=== PATIENT | female | born 1980 | race Two or more races ===

== ENCOUNTER 2017-06-06 11:46 | Emergency (ER) | payer MEDICAID ==
[~2017-06-06] VITALS: Ht 165.1 cm; Wt 58.0 kg
[~2017-06-06 11:46] MED LIST: HYDR118S10 PO; NITR100C6 PO; NO HOME MEDS
[2017-06-06 12:01] VITALS: BP 113/85
[2017-06-06] MEDS ORDERED: TOBR5DRO2 LEFTEYE (13:48)
== END 2017-06-06 13:59 | disposition home or self-care (01) ==
LOC: ER 11:47
DX: H01.006 Unspecified blepharitis left eye, unspecified eyelid (principal); Z79.899 Other long term (current) drug therapy
CPT/HCPCS: 99283

== ENCOUNTER 2021-12-10 20:49 | Emergency (ER) | payer MEDICAID ==
[~2021-12-10] VITALS: Ht 167.6 cm; Wt 55.7 kg
[~2021-12-10 20:49] MED LIST changes: +TOBR5DRO2 LEFTEYE
[2021-12-10 21:02] VITALS: BP 108/70
[2021-12-10] MEDS ORDERED: clindamycin 150mg capsule PO ONE ×2 (22:05)
[2021-12-10] MEDS ORDERED: ondansetron 4mg rapidly disintigrating tab PO ONE (22:05)
[2021-12-10] MEDS ORDERED: HYDROcodone/acetaminophen 5mg/325mg tablet PO ONE (22:05)
[2021-12-10] MEDS ORDERED: IBUP-1984 PO (22:07)
[2021-12-10] MEDS ORDERED: CLIN300C70 PO (22:07)
--- NOTE | 2021-12-10 22:41 | NUR ---
PO MEDS X3 GIVEN
== END 2021-12-10 22:47 | disposition home or self-care (01) ==
LOC: ER 20:49
DX: K04.7 Periapical abscess without sinus (principal); D64.9 Anemia, unspecified; Z59.00 Homelessness unspecified; Z79.899 Other long term (current) drug therapy; Z79.2 Long term (current) use of antibiotics; Z79.1 Long term (current) use of non-steroidal anti-inflammatories (NSAID)
CPT/HCPCS: 99284

== ENCOUNTER 2022-07-05 20:57 | Emergency (ER) | payer BC, MEDICAID ==
[~2022-07-05] VITALS: Ht 167.6 cm; Wt 56.4 kg
[2022-07-05 21:07] VITALS: BP 125/68
[2022-07-05 21:44] LABS: BASOPHILS # (AUTO) 0.1 X10'3 (0-0.2); BASOPHILS % (AUTO) 1.7 % (0-1); EOSINOPHILS # (AUTO) 0.2 X10'3 (0-0.9); EOSINOPHILS % (AUTO) 3.6 % (0-6); HEMATOCRIT 24.9 % (35.0-45.0); HEMOGLOBIN 7.4 g/dl (12.0-16.0); LYMPHOCYTES # (AUTO) 1.4 X10'3 (1.1-4.8); LYMPHOCYTES % (AUTO) 30.7 % (21-51); MEAN CORPUSCULAR HEMOGLOBIN 19.5 PG (27.0-31.0); MEAN CORPUSCULAR HGB CONC 29.9 g/dL (33.0-36.5); MEAN CORPUSCULAR VOLUME 65.3 FL (78-98); MEAN PLATELET VOLUME 7.5 FL (7.4-10.4); MONOCYTES # (AUTO) 0.4 X10'3 (0-0.9); MONOCYTES % (AUTO) 9.2 % (2-12); NEUTROPHILS # (AUTO) 2.6 X10'3 (1.8-7.7); NEUTROPHILS % (AUTO) 54.8 % (42-75); PLATELET COUNT 289 X10'3 (140-440); RED BLOOD COUNT 3.81 X10'6 (4.20-5.60); RED CELL DISTRIBUTION WIDTH 19.6 % (11.5-14.5); WHITE BLOOD COUNT 4.6 X10'3 (4.5-11.0)
[2022-07-05 21:54] LABS: ALANINE AMINOTRANSFERASE 13 U/L (12-78); ALBUMIN 3.8 G/DL (3.4-5.0); ALBUMIN/GLOBULIN RATIO 0.8 (1.1-1.5); ALKALINE PHOSPHATASE 60 IU/L (46-116); ANION GAP 7 (8-16); ASPARTATE AMINO TRANSFERASE 14 U/L (10-37); BILIRUBIN,TOTAL 0.3 MG/DL (0.1-1.0); BLOOD UREA NITROGEN 8 MG/DL (7-18); BUN/CREATININE RATIO 11.8 (6.6-38.0); CALCIUM 8.3 MG/DL (8.5-10.1); CHLORIDE 103 MMOL/L (99-107); CREATININE 0.68 MG/DL (0.40-0.90); POTASSIUM 3.8 MMOL/L (3.5-5.1); SODIUM 136 MMOL/L (135-145); TOTAL CARBON DIOXIDE 25.7 MMOL/L (24-32); TOTAL PROTEIN 8.3 G/DL (6.4-8.2); eGFR > 90 ML/MIN
[2022-07-05 21:56] LABS: GLUCOSE 103 MG/DL (70-104)
[2022-07-05 22:02] LABS: PLATELET ESTIMATE NORMAL
[2022-07-05 22:03] LABS: ANISOCYTOSIS 2+
[2022-07-05 22:04] LABS: ELLIPTOCYTES 1+; HYPOCHROMASIA 1+; MICROCYTOSIS 2+; POIKILOCYTOSIS 1+
[2022-07-05 22:06] LABS: SCHISTOCYTES FEW
== END 2022-07-06 01:11 | disposition left against medical advice (07) ==
LOC: ER 20:59
DX: R94.8 Abnormal results of function studies of other organs and systems (principal); Z53.21 Procedure and treatment not carried out due to patient leaving prior to being seen by health care provider
CPT/HCPCS: 36415; 80053; 85008; 85025; 86870; 86885; 86900; 86901; 86902; 86905

== ENCOUNTER 2022-10-27 20:30 | Emergency (ER) | payer MEDICAID ==
[~2022-10-27] VITALS: Ht 167.6 cm; Wt 55.4 kg
[2022-10-27 21:12] LABS: HEMATOCRIT 24.3 % (35.0-45.0); HEMOGLOBIN 7.1 g/dl (12.0-16.0); MEAN CORPUSCULAR HEMOGLOBIN 18.5 PG (27.0-31.0); MEAN CORPUSCULAR HGB CONC 29.4 g/dL (33.0-36.5); MEAN PLATELET VOLUME 8.6 FL (7.4-10.4); PLATELET COUNT 252 X10'3 (140-440); RED BLOOD COUNT 3.86 X10'6 (4.20-5.60); WHITE BLOOD COUNT 4.4 X10'3 (4.5-11.0)
[2022-10-27 23:06] VITALS: BP 112/80
== END 2022-10-27 23:15 | disposition home or self-care (01) ==
LOC: ER 20:30
DX: R53.83 Other fatigue (principal); D53.9 Nutritional anemia, unspecified; Z88.2 Allergy status to sulfonamides; Z56.0 Unemployment, unspecified; Z98.890 Other specified postprocedural states
CPT/HCPCS: 36415; 85027; 99283

== ENCOUNTER 2022-10-28 05:13 | Emergency (ER) | payer MEDICAID ==
[~2022-10-28] VITALS: Ht 167.6 cm; Wt 56.2 kg
[2022-10-28 05:21] VITALS: BP 107/72
--- NOTE | 2022-10-28 07:30 | NUR ---
PT LEFT ED WITHOUT BEING SEEN BY DR WILKERSON. PT DID NOT NOTIFY RN OR MD THAT SHE WAS LEAVING. PT DID NOT HAVE AN IV IN PLACE. NO AMA FORM WAS SIGNED.
== END 2022-10-28 07:34 | disposition home or self-care (01) ==
LOC: ER 05:14
DX: Z00.00 Encounter for general adult medical examination without abnormal findings (principal); Z53.21 Procedure and treatment not carried out due to patient leaving prior to being seen by health care provider
CPT/HCPCS: 99281

== ENCOUNTER 2023-07-08 23:59 | Inpatient (IN) | payer MEDICAID ==
[~2023-07-08] VITALS: Ht 167.6 cm; Wt 53.0 kg
[2023-07-09] VITALS (7 sets, daily range): BP systolic 91–103; BP diastolic 58–70; PULSE 69–123; RESP 12–25; TEMP 98.1–98.7; O2SAT 95–100
[2023-07-09] MEDS: normal saline 1000ML IV soln IVB ONE (01:10)
[2023-07-09] MEDS: methylPREDNISolone sod succ 125mg/2ml vial IV ONE (01:46)
[2023-07-09] MEDS: ondansetron/PF 4mg/2ml inj IV ONE (02:03)
[2023-07-09] MEDS: morphine 4 MG/ML inj SYRINge IV ONE (02:03)
[2023-07-09 02:22] LABS: EOSINOPHILS # (AUTO) 0.1 X10'3 (0-0.9); EOSINOPHILS % (AUTO) 1.8 % (0-6); MEAN CORPUSCULAR HGB CONC 33.3 g/dL (33.0-36.5); MONOCYTES # (AUTO) 0.3 X10'3 (0-0.9); MONOCYTES % (AUTO) 7.5 % (2-12)
[2023-07-09 02:24] LABS: HEMATOCRIT 32.3 % (35.0-45.0); HEMOGLOBIN 10.8 g/dl (12.0-16.0); LYMPHOCYTES # (AUTO) 0.6 X10'3 (1.1-4.8); LYMPHOCYTES % (AUTO) 14.3 % (21-51); MEAN CORPUSCULAR HEMOGLOBIN 30.9 PG (27.0-31.0); MEAN CORPUSCULAR VOLUME 92.7 FL (78-98); MEAN PLATELET VOLUME 9.3 FL (7.4-10.4); NEUTROPHILS # (AUTO) 3.2 X10'3 (1.8-7.7); NEUTROPHILS % (AUTO) 75.4 % (42-75); PLATELET COUNT 204 X10'3 (140-440); RED BLOOD COUNT 3.49 X10'6 (4.20-5.60); RED CELL DISTRIBUTION WIDTH 15.3 % (11.5-14.5); WHITE BLOOD COUNT 4.2 X10'3 (4.5-11.0)
[2023-07-09 02:26] LABS: ALBUMIN 3.7 G/DL (3.4-5.0); ANION GAP 9 (8-16); BLOOD UREA NITROGEN 12 MG/DL (7-18); BUN/CREATININE RATIO 18.2 (10.0-20.0); CALCIUM 7.8 MG/DL (8.5-10.1); CHLORIDE 107 MMOL/L (99-107); CREATININE 0.66 MG/DL (0.40-0.90); POTASSIUM 3.6 MMOL/L (3.5-5.1); PRO BRAIN NATRIURETIC PEPTIDE 33 PG/ML (0-125); SODIUM 143 MMOL/L (135-145); TOTAL CARBON DIOXIDE 27.4 MMOL/L (24-32); eCRCL 93 ML/MIN; eGFR > 90 ML/MIN
[2023-07-09 02:41] LABS: GLUCOSE 80 MG/DL (70-104)
[2023-07-09] MEDS: albuterol 2.5 MG/3 ML nebule CONTNEB PRN (03:10)
[2023-07-09] MEDS: ipratropium 0.5 MG/2.5ML nebule IH ONE (03:11)
[2023-07-09 05:03] LABS: GLUCOSE,CSF 60 MG/DL (40-75); TOTAL PROTEIN,CSF 23 MG/DL (15-45)
[2023-07-09 05:32] LABS: APPEARANCE,CSF CLEAR; CSF SUPERNATANT COLOR COLORLESS; CSF VOLUME 4 ML
[2023-07-09 05:33] LABS: CSF RBC 40 /CU MM (0); TUBE# COUNTED 1
[2023-07-09 05:41] LABS: CSF WBC CT 8 /CU MM (0-5)
[2023-07-09 05:42] LABS: APPEARANCE,CSF CLEAR; CSF SUPERNATANT COLOR COLORLESS
[2023-07-09 05:43] LABS: CSF RBC 150 /CU MM (0); CSF VOLUME 4 ML; TUBE# COUNTED 4
[2023-07-09 05:45] LABS: CSF WBC CT 8 /CU MM (0-5)
[2023-07-09] MEDS ORDERED: vancomycin/NS 1 GM ADD-VANTAGE 250 ML IV ONE (05:55)
[2023-07-09] MEDS ORDERED: CefTRIAXone 2gm/D5W 50ml BAG 50 ML IV ONE (05:55)
[2023-07-09 05:59] LABS: BILIRUBIN,URINE NEGATIVE (Neg); CLARITY,URINE CLOUDY (Clear); COLOR,URINE YELLOW (Yellow); GLUCOSE, URINE NEGATIVE (Neg); KETONES,URINE TRACE mg/dl (Neg); LEUKOCYTE ESTERASE ,URINE TRACE (Neg); NITRITES, URINE POSITIVE (Neg); OCCULT BLOOD,URINE NEGATIVE (Neg); PH,URINE 7.5 (4.8-8.0); PROTEIN,URINE NEGATIVE (Neg); UROBILINOGEN,URINE 0.2 E.U/dL (0.2-1.0)
[2023-07-09 06:03] LABS: UA COLLECTION TYPE CLN CATCH MIDSTREAM
[2023-07-09 06:05] LABS: BACTERIA,URINE 4+ /HPF (Neg); MUCUS STRANDS MODERATE /LPF (Neg); RBC,URINE NONE SEEN /HPF (0-2); SQUAMOUS EPITHELIAL CELL,UR FEW /LPF (FEW); TRIPLE PHOSPHATE CRYST 2+ /HPF (NEGATIVE); WBC,URINE 0-4 /HPF (0-4)
[2023-07-09] MEDS ORDERED: magnesium 4gm in 100ml NS 100 ML IV PRN (06:20)
[2023-07-09] MEDS ORDERED: magnesium 2GM in 50ml NS 50 ML IV PRN (06:20)
[2023-07-09] MEDS ORDERED: acetaminophen 325mg tablet PO PRN ×2 (06:20→06:25)
[2023-07-09] MEDS ORDERED: magnesium Cl slow-release 64mg tablet PO PRN (06:20)
[2023-07-09] MEDS ORDERED: mag hydrox/Alum hydrox/simeth 30ml oral suspension PO PRN ×2 (06:20→06:25)
[2023-07-09] MEDS ORDERED: potassium Cl 40MEQ/1/2NS 520ml 520 ML IV PRN (06:20)
[2023-07-09] MEDS ORDERED: magnesium hydroxide 30ml (MOM) UD suspension PO PRN ×2 (06:20→06:25)
[2023-07-09] MEDS ORDERED: potassium Cl 20 mEq SR tablet PO PRN ×2 (06:20)
[2023-07-09] MEDS ORDERED: diphenhydrAMINE 25mg capsule PO PRN (06:25)
[2023-07-09] MEDS ORDERED: ondansetron 4mg rapidly disintigrating tab PO PRN (06:25)
[2023-07-09] MEDS ORDERED: morphine 2 MG/ML inj. syringe IV PRN (06:25)
[2023-07-09] MEDS ORDERED: diphenhydrAMINE 50 mg/ml inj IV PRN (06:25)
[2023-07-09] MEDS ORDERED: acetaminophen 650mg rectal suppository RC PRN (06:25)
[2023-07-09] MEDS ORDERED: ondansetron/PF 4mg/2ml inj IV PRN (06:25)
[2023-07-09] MEDS ORDERED: bisacodyl 10mg suppository rectal RC PRN (06:25)
[2023-07-09 06:33] LABS: LYMPHOCYTES,CSF 82 % (40-80); MONOCYTES,CSF 14 % (15-45); NEUTRO,CSF 4 % (0-6)
[2023-07-09] MEDS: dexamethasone sod phosphate 10mg/ml inj IV STA (07:23)
[2023-07-09] MEDS: ondansetron/PF 4mg/2ml inj IV PRN (07:23)
[2023-07-09] MEDS: CefTRIAXone 2gm/D5W 50ml BAG 50 ML IV ONE (07:23)
[2023-07-09] MEDS: vancomycin/NS 1 GM ADD-VANTAGE 250 ML IV ONE (07:23)
[2023-07-09] MEDS: normal saline 1000ml 1,000 ML IV SCH (07:23)
[2023-07-09] MEDS: ringers solution, lacted 1,000 ML IV ONE (07:24)
[2023-07-09] MEDS: pantoprazole 40mg Tablet.DR PO SCH (07:24)
[2023-07-09] MEDS: K and/or MAG REPLACEMENT MC SCH (07:40)
[2023-07-09] MEDS: docusate sod 100mg capsule PO SCH ×2 (07:41→08:00)
[2023-07-09 08:13] LABS: MAGNESIUM 1.9 MG/DL (1.5-2.4)
[2023-07-09 08:19] LABS: POTASSIUM 2.9 MMOL/L (3.5-5.1)
[2023-07-09 08:27] LABS: APTT 23 SECONDS (22-32); PROTHROMBIN TIME 10.9 SECONDS (9.0-12.0)
[2023-07-09 08:28] LABS: PHOSPHORUS 3.1 MG/DL (2.3-4.5)
[2023-07-09 11:08] LABS: MONOCYTES,CSF 14 % (15-45)
[2023-07-09 11:09] LABS: LYMPHOCYTES,CSF 86 % (40-80); NEUTRO,CSF 0 % (0-6)
[2023-07-09 19:35] LABS: MAGNESIUM 1.6 MG/DL (1.5-2.4); POTASSIUM 4.1 MMOL/L (3.5-5.1)
[2023-07-09] MEDS: vancomycin/NS 1 GM ADD-VANTAGE 250 ML IV SCH (19:54)
[2023-07-09] MEDS: acetaminophen 325mg tablet PO PRN (20:20)
[2023-07-09] MEDS ORDERED: temazepam 15mg capsule PO PRN (21:00)
[2023-07-10 06:00] VITALS: BP 116/70; PULSE 84; RESP 16; TEMP 98.3; O2SAT 98
[2023-07-10] MEDS: FLU VACC QS2023-24(6MOS UP)/PF 60 MCG/0.5 ML SYRINGE IM ONE (06:50)
[2023-07-10 07:52] LABS: HEMATOCRIT 26.3 % (35.0-45.0); LYMPHOCYTES # (AUTO) 0.8 X10'3 (1.1-4.8); LYMPHOCYTES % (AUTO) 14.1 % (21-51); MEAN CORPUSCULAR HGB CONC 32.9 g/dL (33.0-36.5); MONOCYTES # (AUTO) 0.3 X10'3 (0-0.9); MONOCYTES % (AUTO) 6.1 % (2-12); NEUTROPHILS # (AUTO) 4.4 X10'3 (1.8-7.7); RED CELL DISTRIBUTION WIDTH 15.4 % (11.5-14.5)
[2023-07-10 07:54] LABS: BASOPHILS % (AUTO) 0.5 % (0-1); EOSINOPHILS % (AUTO) 0.3 % (0-6); HEMOGLOBIN 8.6 g/dl (12.0-16.0); MEAN CORPUSCULAR HEMOGLOBIN 30.6 PG (27.0-31.0); MEAN CORPUSCULAR VOLUME 93.1 FL (78-98); MEAN PLATELET VOLUME 9.7 FL (7.4-10.4); PLATELET COUNT 168 X10'3 (140-440); RED BLOOD COUNT 2.82 X10'6 (4.20-5.60); WHITE BLOOD COUNT 5.5 X10'3 (4.5-11.0)
[2023-07-10] MEDS ORDERED: CefTRIAXone 2gm/D5W 50ml BAG 50 ML IV SCH (08:00)
[2023-07-10 08:09] LABS: ALANINE AMINOTRANSFERASE 80 U/L (12-78); ALBUMIN 2.6 G/DL (3.4-5.0); ALBUMIN/GLOBULIN RATIO 0.7 (1.1-1.5); ALKALINE PHOSPHATASE 50 IU/L (46-116); ASPARTATE AMINO TRANSFERASE 36 U/L (10-37); BILIRUBIN,TOTAL 0.2 MG/DL (0.1-1.0); BLOOD UREA NITROGEN 53 MG/DL (7-18); BUN/CREATININE RATIO 86.9 (10.0-20.0); CALCIUM 6.3 MG/DL (8.5-10.1); CHLORIDE 115 MMOL/L (99-107); CHOL/HDL RATIO 8.2 (0.00-4.99); CHOLESTEROL 419 MG/DL (0-200); CREATININE 0.61 MG/DL (0.40-0.90); HDL CHOLESTEROL 51 MG/DL (35-60); LDL CHOLESTEROL 55 MG/DL (50-100); MAGNESIUM 2.8 MG/DL (1.5-2.4); POTASSIUM 3.8 MMOL/L (3.5-5.1); SODIUM 146 MMOL/L (135-145); TOTAL PROTEIN 6.2 G/DL (6.4-8.2); TRIGLYCERIDES 374 MG/DL (20-135); eCRCL 101 ML/MIN; eGFR > 90 ML/MIN
[2023-07-10] MEDS: oseltamivir phos 75mg capsule PO SCH (08:18)
[2023-07-10] MEDS: HYDROcodone/acetaminophen 5mg/325mg tablet PO PRN (08:19)
[2023-07-10 08:26] LABS: GLUCOSE 139 MG/DL (70-104)
[2023-07-10 08:43] LABS: ANION GAP 4 (8-16); TOTAL CARBON DIOXIDE 27.3 MMOL/L (24-32)
[2023-07-10 10:00] VITALS: BP 115/68; PULSE 80; RESP 16; TEMP 98.3; O2SAT 98
[2023-07-10 10:48] VITALS: RESP 15
[2023-07-10] MEDS: ketorolac trometh. 30mg/ml inj. IV ONE (10:48)
[2023-07-10] MEDS ORDERED: TAM75C PO (12:54)
[2023-07-10] MEDS ORDERED: NIRM1TAB9 PO (12:54)
[2023-07-10] MEDS ORDERED: B12/1TAB PO (16:56)
[2023-07-10] MEDS ORDERED: VANCOMYCIN LEVEL IV ONE (18:30)
== END 2023-07-10 13:23 | disposition home or self-care (01) | DRG 720 ==
LOC: ER 07-09 → ED HOLD 07-09 06:21 → EDBEDREQ 07-09 13:51 → ORTHO 4S 07-09 15:45
PROVIDERS: ADMIT Family Medicine; ATTEND Internal Medicine
PROC: 009U3ZX Drainage of Spinal Canal, Percutaneous Approach, Diagnostic (ICD-10-PCS; principal; 2023-07-09)
DX: A41.9 Sepsis, unspecified organism (principal); J12.82 Pneumonia due to coronavirus disease 2019; J10.08 Influenza due to other identified influenza virus with other specified pneumonia; U07.1 COVID-19; R82.4 Acetonuria; E86.1 Hypovolemia; G89.4 Chronic pain syndrome; D64.9 Anemia, unspecified; N39.0 Urinary tract infection, site not specified; Z79.891 Long term (current) use of opiate analgesic; Z86.73 Personal history of transient ischemic attack (TIA), and cerebral infarction without residual deficits; Z88.2 Allergy status to sulfonamides; Z88.3 Allergy status to other anti-infective agents; Z56.0 Unemployment, unspecified
CPT/HCPCS: 36415; 70450; 71045; 71250; 74176; 80048; 80053; 80061; 81001; 82945; 83036; 83605; 83735; 83880; 84100; 84132; 84157; 85025; 85610; 85730; 87015; 87040; 87070; 87081; 87088; 87502; 87503; 87634; 87811; 89051; 90686; 94640; 99285; A7015; G0378; J0696; J1100; J1885; J2270; J2405; J2930; J3370; J7030; J7120

== ENCOUNTER → 2023-11-25 | Outpatient (CLI) | payer MEDICAID ==
[~2023-11-25] MED LIST changes: +B12/1TAB PO; -HYDR118S10 PO; +NIRM1TAB9 PO; +TAM75C PO; +iohexol 350MG/ML 100ml bottle IV ONE
== END | disposition home or self-care (01) ==
LOC: RAD 14:45
PROVIDERS: ATTEND Neuromusculoskeletal Medicine & OMM
DX: I67.1 Cerebral aneurysm, nonruptured (principal)
CPT/HCPCS: 70496; Q9967

== ENCOUNTER 2024-04-22 19:31 | Emergency (ER) | payer MEDICAID ==
[~2024-04-22] VITALS: Ht 167.6 cm; Wt 54.8 kg
[~2024-04-22 19:31] MED LIST changes: -iohexol 350MG/ML 100ml bottle IV ONE
[2024-04-22 21:39] LABS: BASOPHILS # (AUTO) 0.1 X10'3 (0-0.2); BASOPHILS % (AUTO) 3.6 % (0-1); EOSINOPHILS # (AUTO) 0.2 X10'3 (0-0.9); EOSINOPHILS % (AUTO) 4.4 % (0-6); HEMATOCRIT 32.3 % (35.0-45.0); HEMOGLOBIN 10.7 g/dl (12.0-16.0); LYMPHOCYTES # (AUTO) 0.8 X10'3 (1.1-4.8); LYMPHOCYTES % (AUTO) 21.7 % (21-51); MEAN CORPUSCULAR HEMOGLOBIN 28.5 PG (27.0-31.0); MEAN CORPUSCULAR HGB CONC 33.2 g/dL (33.0-36.5); MEAN PLATELET VOLUME 8.7 FL (7.4-10.4); MONOCYTES # (AUTO) 0.3 X10'3 (0-0.9); MONOCYTES % (AUTO) 7.7 % (2-12); NEUTROPHILS # (AUTO) 2.3 X10'3 (1.8-7.7); NEUTROPHILS % (AUTO) 62.6 % (42-75); PLATELET COUNT 217 X10'3 (140-440); RED BLOOD COUNT 3.75 X10'6 (4.20-5.60); RED CELL DISTRIBUTION WIDTH 15.3 % (11.5-14.5); WHITE BLOOD COUNT 3.8 X10'3 (4.5-11.0)
[2024-04-22 21:52] LABS: ALANINE AMINOTRANSFERASE 10 U/L (12-78); ALBUMIN 3.5 G/DL (3.4-5.0); ALBUMIN/GLOBULIN RATIO 0.7 (1.1-1.5); ALKALINE PHOSPHATASE 55 IU/L (46-116); ANION GAP 8 (8-16); ASPARTATE AMINO TRANSFERASE 13 U/L (10-37); BILIRUBIN,TOTAL 0.3 MG/DL (0.1-1.0); BLOOD UREA NITROGEN 12 MG/DL (7-18); BUN/CREATININE RATIO 16.4 (10.0-20.0); CALCIUM 7.9 MG/DL (8.5-10.1); CHLORIDE 102 MMOL/L (99-107); CREATININE 0.73 MG/DL (0.40-0.90); MAGNESIUM 1.9 MG/DL (1.5-2.4); POTASSIUM 3.5 MMOL/L (3.5-5.1); SODIUM 138 MMOL/L (135-145); TOTAL CARBON DIOXIDE 27.6 MMOL/L (24-32); TOTAL PROTEIN 8.3 G/DL (6.4-8.2); eCRCL 86 ML/MIN; eGFR 87 ML/MIN
[2024-04-22 22:22] VITALS: BP 106/70; PULSE 90; RESP 16; TEMP 98.6; O2SAT 98
[2024-04-22 22:38] LABS: GLUCOSE 102 MG/DL (70-104)
== END 2024-04-22 22:24 | disposition home or self-care (01) ==
LOC: ER 19:32
DX: J20.9 Acute bronchitis, unspecified (principal); R09.89 Other specified symptoms and signs involving the circulatory and respiratory systems; E03.9 Hypothyroidism, unspecified; G43.909 Migraine, unspecified, not intractable, without status migrainosus; D64.9 Anemia, unspecified; Z56.0 Unemployment, unspecified; Z98.890 Other specified postprocedural states; Z88.2 Allergy status to sulfonamides; Z86.73 Personal history of transient ischemic attack (TIA), and cerebral infarction without residual deficits; Z79.899 Other long term (current) drug therapy
CPT/HCPCS: 36415; 71046; 80053; 83735; 85025; 87502; 87503; 99284

== ENCOUNTER 2024-12-14 18:41 | Emergency (ER) | payer MEDICAID ==
[~2024-12-14] VITALS: Ht 167.6 cm; Wt 51.3 kg
[2024-12-14 19:11] VITALS: TEMP 97
[2024-12-14 19:37] LABS: MEAN PLATELET VOLUME 7.6 FL (7.4-10.4); RED CELL DISTRIBUTION WIDTH 19.1 % (11.5-14.5)
--- NOTE | 2024-12-14 19:40 | Physician Documentation ---
History of Present Illness Chief Complaint: Abdominal Pain Stated Complaint: KIDNEY PAIN Primary Medical Doctor: JEIMY HENDRIX Source: patient Mode of Arrival: POV, Ambulatory Exam Limitations: no limitations HPI Chief Complaint: Abdominal pain Caveat: None Independent Historians: None History of Present Illness: Patient is a 44-year-old woman who comes in complaining of diffuse abdominal pain that began 45 minutes prior to arrival after eating while blackberries. Pain is described as sharp and crampy and diffuse. Patient has not tried taking anything for the pain. Patient has had s ome nausea but no vomiting. No diarrhea. No other associated symptoms. No alleviating or exacerbating factors identified. Patient's pain is currently 7/10. However the patient states that her pain has improved some since it started. Review of systems: All systems were reviewed and are negative except for what is indicated in the history of present illness. Past Medical History: Renal insufficiency/chronic kidney disease per patient, stroke Past Surgical History: Cerebral aneurysms x2 with coils Social History: Tobacco use, denies alcohol use or drug use Medications: Reviewed as documented Nursing Notes Allergies: Reviewed as documented in Nursing Notes Medication Reconciliation Allergies: Coded Allergies: sulfamethoxazole (Verified Allergy, Mild, hives, 12/14/24) trimethoprim (Verified Allergy, Mild, hives, 12/14/24) Scheduled B12/Levomefolate Calcium/B-6 (Foltx Tablet), 1 EACH PO DAILY Nirmatrelvir/Ritonavir (Paxlovid 300-100 mg Dose Pack), 1 TAB PO BID Nitrofurantoin Monohyd/M-Cryst (Macrobid 100 mg Capsule), 1 CAP PO BID Oseltamivir Phosphate (Tamiflu), 75 MG PO BID Tobramycin Sulfate/Dexameth (Tobradex Eye Drops), 1 DROP LEFTEYE Q6H Miscellaneous Medications Home Med List (No Home Medications), (Reported) Past Medical History Past Medical History: *INFORMATION SECURITY ENGINEER*, CVA/TIA/Stroke, Anemia Past Surgical History: brain surgery, Alcohol Use: None Drug Use: none Lives with: Mother Occupation: unemployed Review of Systems All Other Systems at this time: Reviewed and Negative ROS Patient denies any other acute symptoms other than above. All other systems are negative Physical Exam Vital Signs: RN Vital Signs have been reviewed: Yes, Temperature: 97.0, Source: Temporal, Heart Rate: 66, Respiratory Rate: 16, BP: 114/72, Pulse Oximetry: 98, Weight: 51.300 Oxygen Flow Rate: 0 Pulse Oximetry Reflects: adequate oxygenation Physical Exam General Appearance: Mild distress HEENT: Normal OP, moist oral mucosa, PERRL, EOMI Neck: supple, normal ROM, trachea midline Pulmonary: No respiratory distress, CTA, BS equal Cardiac: RRR, no murmur, rub or gallop, GI: nondistended, soft, nontender, normal bowel sounds, no guarding, no rebound Extremities: normal ROM, no swelling, non-tender Skin: intact, dry, warm, no rashes Neuro: AAOx3, speech is clear, no focal motor weakness Psych: normal affect, good eye contact, no apparent hallucination, normal speech Progress Results/Orders Results/Orders Vital Signs 12/14/24 12/14/24 19:11 19:32 Temp 97.0 Pulse 66 Resp 16 16 B/P (MAP) 114/72 Pulse Ox 98 O2 Flow Rate 0 Laboratory Tests Test 12/14/24 19:23 White Blood Count 4.4 L Red Blood Count 4.12 L Hemoglobin 9.6 L Hematocrit 29.9 L Mean Corpuscular Volume 72.6 L Mean Corpuscular Hemoglobin 23.3 L Mean Corpuscular Hemoglobin Concent 32.1 L Red Cell Distribution Width 19.1 H Platelet Count 280 Mean Platelet Volume 7.6 Neutrophils (%) (Auto) 61.1 Lymphocytes (%) (Auto) 28.5 Monocytes (%) (Auto) 6.1 Eosinophils (%) (Auto) 3.0 Basophils (%) (Auto) 1.3 H Neutrophils # (Auto) 2.7 Lymphocytes # (Auto) 1.3 Monocytes # (Auto) 0.3 Eosinophils # (Auto) 0.1 Basophils # (Auto) 0.1 CBC Comment Basophilic Stippling Chemistry Comments Medical Decision Making Findings Differential diagnosis includes but is not limited to: Food poisoning, colic, Laboratory data independent interpretation: CBC: Remarkable for moderate anemia, hemoglobin 9.6 and hematocrit 29.9 CMP: CMP unremarkable. Urinalysis: Unremarkable Emergency department course/medical decision-making: Patient presents with abdominal cramps after eating blackberries. Patient's symptoms have improved since this started. Patient is given sublingual Zofran 4 mg for her nausea and Toradol 15 mg IM for her abdominal pain. Patient's lab work is unremarkable. Patient does not require imaging. Patient has a normal abdominal exam. Patient is reassured. Patient is stable for discharge. Departure Time of Disposition: 20:57 Disposition: 01 HOME / SELF CARE / HOMELESS Impression: Primary Impression: Abdominal pain Qualified Codes: R10.84 - Generalized abdominal pain Additional Impression: Anemia Qualified Codes: D64.9 - Anemia, unspecified Condition: Stable Discharge Instructions: Abdominal Pain (Nonspecific) Additional Instructions: RETURN TO THE ER IF YOUR ABDOMINAL PAIN WORSENS OR IF YOU DEVELOP A HIGH FEVER. CAUSE YOUR PAIN SOUNDS LIKE IT WAS FROM THE BLACKBERRIES. THIS WILL RESOLVE ON ITS OWN. WITH YOUR PRIMARY CARE DOCTOR NEEDED. YOU'RE FOUND TO BE SIGNIFICANTLY ANEMIC WITH A HEMOGLOBIN OF 9.6. RECOMMEND YOU FOLLOW UP WITH YOUR PRIMARY CARE DOCTOR FOR TREATMENT. Education Educated: Patient Educated regarding: diagnosis, treatment, need for follow up Signature Scribe Signature: No scribe Attestation: No scribe EVA PURCELL Dec 14, 2024 19:40 RODOLFO GONZALEZ MD Dec 14, 2024 20:57
[2024-12-14 19:48] LABS: URINE HCG NEGATIVE (NEG)
[2024-12-14 19:50] LABS: CREATININE 0.74 MG/DL (0.40-0.90); TOTAL CARBON DIOXIDE 27.3 MMOL/L (24-32); eCRCL 79 ML/MIN; eGFR 85 ML/MIN
[2024-12-14] MEDS: ondansetron 4mg rapidly disintigrating tab PO ONE (19:58)
[2024-12-14] MEDS: ketorolac trometh 15mg/ml vial 15 MG/ML ML IM ONE (19:59)
[2024-12-14 20:02] LABS: PLATELET ESTIMATE NORMAL
[2024-12-14 20:07] LABS: LEUKOCYTE ESTERASE ,URINE NEGATIVE (Neg); NITRITES, URINE NEGATIVE (Neg); OCCULT BLOOD,URINE MODERATE (Neg)
[2024-12-14 20:21] LABS: UA COLLECTION TYPE CLN CATCH MIDSTREAM
[2024-12-14 20:23] LABS: MUCUS STRANDS MODERATE /LPF (Neg); SQUAMOUS EPITHELIAL CELL,UR FEW /LPF (FEW)
[2024-12-14 21:27] VITALS: BP 108/72; PULSE 69; RESP 16; O2SAT 98
== END 2024-12-14 21:42 | disposition home or self-care (01) ==
LOC: ER 18:41
DX: R10.84 Generalized abdominal pain (principal); D64.9 Anemia, unspecified; N18.9 Chronic kidney disease, unspecified; Z88.2 Allergy status to sulfonamides; Z86.73 Personal history of transient ischemic attack (TIA), and cerebral infarction without residual deficits; Z79.899 Other long term (current) drug therapy; Z56.0 Unemployment, unspecified
CPT/HCPCS: 80053; 81001; 81025; 83690; 85008; 85025; 96372; 99283; J1885